=== PATIENT | female | born 1995 | race Caucasian/White ===

== ENCOUNTER 2020-11-18 08:26 | Inpatient (IN) | payer BC ==
[~2020-11-18] VITALS: Ht 160 cm; Wt 120.9 kg
[2020-11-18] MEDS ORDERED: LEVO125C4 PO (08:31)
[2020-11-18] MEDS ORDERED: PNV1COMB PO (08:32)
[2020-11-18] MEDS ORDERED: CHOL10003 PO (08:32)
[2020-11-18] MEDS ORDERED: FENTANYL PF 100 MCG/2ML IVPush PRN (09:00)
[2020-11-18] MEDS ORDERED: TERBUTALINE 1 MG/ML, 1ML IVPush PRN (09:00)
[2020-11-18] MEDS ORDERED: OXYTOCIN 30U/ 0.9% NaCL 500ML 500 ML IV ONE (09:00)
[2020-11-18] MEDS ORDERED: CALCIUM CARBONATE 500 MG TAB.CHEW PO PRN (09:00)
[2020-11-18] MEDS ORDERED: TERBUTALINE 1 MG/ML, 1ML SQ PRN (09:00)
[2020-11-18] MEDS ORDERED: ONDANSETRON 2MG/ML, 2ML IVPush PRN (09:00)
[2020-11-18] MEDS: D5%-LACTATED RINGERS 1,000 ML IV SCH ×2 (09:00→17:00)
[2020-11-18] MEDS ORDERED: FENTANYL PF 100 MCG/2ML IV PRN (09:00)
[2020-11-18 09:04] LABS: BASOPHILS % (AUTO) 0 % (0-1); EOSINOPHILS % (AUTO) 2 % (1-7); LYMPHOCYTES % (AUTO) 19 % (22-44); MD NO; MEAN CORPUSCULAR HEMOGLOBIN 31.2 pg (27.0-34.8); MEAN CORPUSCULAR HGB CONC 34.6 g/dL (32.4-35.8); MEAN PLATELET VOLUME 8.7 fL (7.4-10.4); MONOCYTES % (AUTO) 6 % (2-9); NEUTROPHILS % (AUTO) 73 % (42-75); PLATELET COUNT 214 x10^3/uL (130-400); RED BLOOD COUNT 3.86 x10^6/uL (3.82-5.3); RED CELL DISTRIBUTION WIDTH 14.6 % (9.6-15.2)
[2020-11-18] MEDS ORDERED: NEWBORN KIT ONE (09:07)
[2020-11-18 09:56] VITALS: BP 128/82
[2020-11-18] MEDS: LACTATED RINGERS 1,000 ML IV SCH ×2 (10:15→17:00)
[2020-11-18] MEDS: OXYTOCIN 30U/ 0.9% NaCL 500ML 500 ML IV PRN ×2 (10:20→15:41)
[2020-11-18] MEDS ORDERED: LACTATED RINGERS 1,000 ML IV PRN (15:30)
[2020-11-18] MEDS ORDERED: MAGNESIUM SULF. PMX 20GM/500ML 500 ML IV SCH (15:30)
[2020-11-18] MEDS ORDERED: CALCIUM GLUCONATE 4.6 MEQ/10 ML IV PRN (15:30)
[2020-11-18] MEDS ORDERED: MISOPROSTOL 200 MCG TABLET ONE (15:38)
[2020-11-18] MEDS ORDERED: DOCUSATE 100 MG CAPSULE PO PRN (16:30)
[2020-11-18] MEDS ORDERED: ACETAMINOPHEN 325 MG TABLET PO PRN (16:30)
[2020-11-18] MEDS ORDERED: SIMETHICONE 80 MG CHEW TAB PO PRN (16:30)
[2020-11-18] MEDS ORDERED: OXYcodone IR 5MG TABLET PO PRN (16:30)
[2020-11-18] MEDS: OXYTOCIN 30U/ 0.9% NaCL 500ML 500 ML IV SCH (16:30)
[2020-11-18] MEDS ORDERED: METHYLERGONOVINE 0.2 MG/ML IM PRN (16:30)
[2020-11-18] MEDS ORDERED: MISOPROSTOL 200 MCG TABLET PR PRN (16:30)
[2020-11-18] MEDS ORDERED: OXYcodone/APAP 5/325MG TABLET PO PRN (16:30)
[2020-11-18] MEDS: IBUPROFEN 600 MG TABLET PO PRN ×2 (16:30→23:39)
[2020-11-18] MEDS ORDERED: ONDANSETRON 2MG/ML, 2ML IV PRN (16:30)
[2020-11-18 17:45] VITALS: BP 125/84
[2020-11-18 20:15] VITALS: BP 122/83
[2020-11-18 23:44] LABS: BASOPHILS % (AUTO) 1 % (0-1); EOSINOPHILS % (AUTO) 1 % (1-7); LYMPHOCYTES % (AUTO) 14 % (22-44); MEAN CORPUSCULAR HEMOGLOBIN 30.4 pg (27.0-34.8); MEAN CORPUSCULAR HGB CONC 33.9 g/dL (32.4-35.8); MEAN PLATELET VOLUME 8.6 fL (7.4-10.4); MONOCYTES % (AUTO) 6 % (2-9); NEUTROPHILS % (AUTO) 79 % (42-75); PLATELET COUNT 197 x10^3/uL (130-400); RED BLOOD COUNT 3.73 x10^6/uL (3.82-5.3); RED CELL DISTRIBUTION WIDTH 14.8 % (9.6-15.2)
[2020-11-18 23:49] LABS: MD NO
[2020-11-19] VITALS: BP 120/79
[2020-11-19] MEDS: D5%-LACTATED RINGERS 1,000 ML IV SCH (01:00)
[2020-11-19] MEDS: LACTATED RINGERS 1,000 ML IV SCH (01:00)
[2020-11-19] MEDS: OXYTOCIN 30U/ 0.9% NaCL 500ML 500 ML IV SCH (02:30)
[2020-11-19 04:20] VITALS: BP 109/79
[2020-11-19 08:00] VITALS: BP 114/78
[2020-11-19] MEDS ORDERED: PRENATAL VIT/IRON/FA 1 EACH TABLET PO SCH (09:00)
[2020-11-19] MEDS ORDERED: IBUP-1222 PO (10:03)
[2020-11-19 12:30] VITALS: BP 125/87
== END 2020-11-19 16:30 | disposition home or self-care (01) | DRG 807 ==
LOC: LDIP 08:26 → 2NW 17:38
PROVIDERS: ADMIT Obstetrics & Gynecology; ATTEND Obstetrics & Gynecology
PROC: 10E0XZZ Delivery of Products of Conception, External Approach (ICD-10-PCS; principal; 2020-11-18)
PROC: 0HQ9XZZ Repair Perineum Skin, External Approach (ICD-10-PCS; 2020-11-18)
DX: O62.3 Precipitate labor (principal); Z37.0 Single live birth; O70.0 First degree perineal laceration during delivery; E03.9 Hypothyroidism, unspecified; E66.9 Obesity, unspecified; O99.214 Obesity complicating childbirth; O99.284 Endocrine, nutritional and metabolic diseases complicating childbirth; Z3A.39 39 weeks gestation of pregnancy; Z88.0 Allergy status to penicillin; Z20.822 Contact with and (suspected) exposure to COVID-19
CPT/HCPCS: 36415; 85025; 86592; 86850; 86900; 87635; G0378; J2590; J7120